=== PATIENT | male | born 1955 | race Caucasian/White ===

== ENCOUNTER 2025-07-06 06:31 | Day surgery (SDC) | payer MEDICARE, SELFPAY | END 2025-07-06 10:54 | disposition home or self-care (01) | LOC: GI 06:31 | PROVIDERS: ATTENDING PHYSICIAN Internal Medicine Gastroenterology | DX: Z12.11 Encounter for screening for malignant neoplasm of colon (principal); K64.8 Other hemorrhoids; D17.79 Benign lipomatous neoplasm of other sites; D12.3 Benign neoplasm of transverse colon; D12.4 Benign neoplasm of descending colon; K63.5 Polyp of colon | CPT/HCPCS: 45380; 88305 ==